=== PATIENT | female | born 1975 | race African-American/Black ===

== ENCOUNTER 2016-12-14 15:00 | Emergency (ER) | payer BC, OTHER ==
--- NOTE | ~2016-12-14 | EKG ---
PATIENT: AMANDO BERRY UNIT #: [id number] Ventricular Rate: 94 BPM Atrial Rate: 94 BPM P-R Interval: 164 ms QRS Duration: 84 ms Q-T Interval: 370 ms QTC Calculation(Bezet): 462 ms P [place]: 52 degrees Calculated R [place]: 38 degrees Calculated T [place]: 26 degrees Diagnosis Line: Normal sinus rhythm Diagnosis Line: Possible Left atrial enlargement Diagnosis Line: Borderline ECG Diagnosis Line: No previous ECGs available Diagnosis Line: Confirmed by BARBARA COYLE MD ([id number]) on Diagnosis Line: 12/15/2016 4:50:19 PM INTERPRETING MD: JONNA ALFARO
[~2016-12-14 15:00] MED LIST: FLEXERIL10 MG PO; NAPROXEN375 MG PO; NO MEDICATIONS; VOLTAREN75 MG PO
== END 2016-12-14 17:17 | disposition home or self-care (01) ==
LOC: SED 15:00
DX: M43.6 Torticollis (principal); I10 Essential (primary) hypertension; Z79.899 Other long term (current) drug therapy; Z98.890 Other specified postprocedural states; Z90.5 Acquired absence of kidney
CPT/HCPCS: 93005; 96372; 99283; J1885